=== PATIENT | female | born 1990 | race Caucasian/White ===

== ENCOUNTER → 2023-12-26 09:34 | Outpatient (REF) | payer OTHER, SELFPAY | LOC: WDC 09:34 | PROVIDERS: ATTENDING PHYSICIAN Family Medicine | DX: N63.32 Unspecified lump in axillary tail of the left breast (principal) | CPT/HCPCS: 76642; 77062; 77066 ==

== ENCOUNTER 2024-03-26 08:31 | Emergency (ER) | payer OTHER, SELFPAY ==
[2024-03-26 08:35] VITALS: BP 145/93
--- NOTE | 2024-03-26 10:49 | ED.GENMED ---
History of Present Illness
General
Chief Complaint: Problems
Source: patient
Time Seen by Provider: 03/26/24 10:42
History of Present Illness
History of Present Illness:
33yoF currently 5 weeks presenting for evaluation after a fall last night around 7pm. Patient slipped while walking down the steps and fell backwards. She fell down about 7 steps. She reports some minor pain in her mid back. She started
with cramping today which prompted her to come to the ED. She denies any vaginal bleeding. No urinary symptoms, headache, neck pain, shortness of breath. 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 Her initial OB appointment is scheduled for next
week.
Past History
Past History
ED Past Medical History: Asthma and Other (Sinusitis)
ED Past Surgical History: Tonsilectomy
Social History
Tobacco: Smoker
Alcohol: Occasional
Drug: Former user
Personal:
Living: with family
Family History
Family History: Negative Diabetes, Hypertension, Early CAD, Asthma or Cancer
Phy Exam
General Physical Exam
General Presentation: well appearing and no apparent distress
General age: appears stated age
General Skin: warm and dry
General Habitus: normal
General Mental: alert
ENT Exam
ENT Exam: normocephalic
Pulmonary Exam
Pulmonary Exam: lungs clear, no respiratory distress, no rales, chest non tender, no crackles and no rhonchi
Gastrointestinal Exam
Gastrointestinal Exam: non tender, soft and non distended
F[place]on Coma Scale
Eye Opening: Spontaneous
Verbal Response: Oriented
Motor Response: Obeys Commands
GCS Total Score: 15
Musculoskeletal Exam
Musculoskeletal Exam: other (No C/T/L spine tenderness)
Skin Exam
Skin Exam: normal color, warm/dry and other (No ecchymosis noted)
Course
Orders/Labs/Results
Orders:
Orders
03/26/24 10:48
US W Transvaginal Urgent
Reason For Exam: Cramping, 5 weeks
03/26/24 11:06
Beta HCG Quantitative Urgent
Is this a screen?: No
Complete Blood Count/With Diff Urgent
Comprehensive Metabolic Panel Urgent
Abnormal Lab Results
03/26/24
11:06
RBC 4.07 L 10^6/uL
(4.20-5.40)
Hct 35.2 L %
(37.0-47.0)
Alkaline Phosphatase 25 L U/L
(38-126)
03/26/24 11:06
03/26/24 11:06
Vital Signs
Initial and Last Documented VS:
Initial Vital Signs
Temp Pulse Resp BP Pulse Ox
98.5 F 108 16 145/93 98
03/26/24 08:35 03/26/24 08:35 03/26/24 08:35 03/26/24 08:35 03/26/24 08:35
Last Documented Vital Signs
Temp Pulse Resp BP Pulse Ox
98.5 F 98 15 140/88 98
03/26/24 08:35 03/26/24 13:04 03/26/24 13:04 03/26/24 13:04 03/26/24 08:35
Information
Weeks gestation: Weeks:
Location: Location:
MDM/Problems Addressed
Differential Diagnosis Includes:
33yoF here after a fall down steps last night. Currently 5 weeks . C/o lower back cramping. No vaginal bleeding. VSS. She is well appearing in no distress. Abdomen soft, non-tender. No C/T/L spine tenderness noted. Bilateral breath sounds
equal. Differential diagnosis includes but is not limited to: mechanical fall, sprain, contusion, miscarriage, ectopic
Initial ED plan: Check CBC, CMP, quantitative hCG, and pelvic ultrasound.
*Critical Care Note
Total Time (30-74mins, 75-104mins- exclusive of procedures): Not Applicable
Update Note
Update Note:
Quantitative HCG is 3100 which is increasing per patient. Ultrasound reveals small cystic focus in the fundal endometrium suspicious for early gestational sac measuring 5 weeks 1 day. A pole or yolk sac are not identified. Results discussed
with patient. She has an appointment to see OBGYN scheduled for next week and is supposed to have an ultrasound at that time. ED return precautions discussed. She expressed understanding and was discharged in stable condition.
ED Attending Note
-
Portions of this chart may have been created with voice recognition software.� Occasional wrong word or��sound alike� substitutions may have occurred due to the inherent limitations of voice recognition software.
Discharge Plan
Departure
Patient Disposition: Home (Routine Discharge)
Date of Disposition: 03/26/24
Time of Disposition: 13:19
Patient with high blood pressure during this ER visit?: Yes
Discharge Problem:
Fall down steps, Early stage of , Low back pain
Instructions: Back Pain
Prescriptions:
No Action
vit-iron fum-folic ac 1 TAB tablet
1 tab PO DAILY
escitalopram oxalate 20 MG tablet
20 mg PO DAILY
ondansetron 4 mg Tablet,Disintegrating
4 mg PO TIDPRN PRN (Reason: nausea/vomiting) Qty: 10 0RF
Referrals:
Matheus Roberson DO [Family Provider] -
Activity Restrictions/Additional Instructions:
Apply heat to affected area. You may take Tylenol as needed for pain.
Please follow-up with your OBGYN next week. You will need a repeat HCG and ultrasound.
Return to the ER with any worsening symptoms, severe pain, loss of consciousness, vaginal bleeding.
Interventions
Interventions:
*Risk Screen - Suicide Last Done: 03/26/24 08:35
*Neglect/Abuse Screening Last Done: 03/26/24 08:35
ED- Fall Risk Assessment Last Done: 03/26/24 11:12
*ED COVID-19 Vaccine History Last Done: 03/26/24 11:12
*Nursing Disposition Last Done: 03/26/24 13:26
ED-Female Genitourinary Assessment Last Done: 03/26/24 11:12
Discharge Date and Time
Discharge Date/Time: 03/26/24 13:53
Print Language: NIGERIEN
[2024-03-26 11:12] VITALS: BMI 28.1
[2024-03-26 11:15] LABS: % Basophils 0.5 % (0-2); % Eosinophils 1.9 % (0-6); % Immature Granulocytes 0.2 % (0-0.5); % Lymphocytes 34.3 % (20.5-51.1); % Monocytes 8.3 % (1.7-9.3); % Neutrophils 54.8 % (42.2-75.2); Absolute Eosinophils 0.1 10^3/uL (0-0.7); Absolute Monocytes 0.5 10^3/uL (0.1-0.6); Absolute Neutrophils 3.1 10^3/uL (1.4-6.5); Hematocrit 35.2 % (37.0-47.0); Hemoglobin 12.5 g/dL (12.0-16.0); Mean Corp Hgb Conc. 35.5 g/dL (33.0-37.0); Mean Corpuscular Hgb 30.7 pg (27.0-31.0); Mean Corpuscular Volume 86.5 fL (81.0-99.0); Mean Platelet Volume 8.8 fL (7.4-10.4); Nucleated Red Blood Cells % 0 %; Platelet Count 296 10^3/uL (130-400); Red Blood Cell Count 4.07 10^6/uL (4.20-5.40); Red Cell Dist. Width 12.4 % (11.5-14.5); White Blood Cell Count 5.7 10^3/uL (4.8-10.8)
[2024-03-26 11:35] LABS: ALT (SGPT) 13 U/L (0-35); AST (SGOT) 17 U/L (14-36); Albumin 4.3 g/dl (3.5-5.0); Alkaline Phosphatase 25 U/L (38-126); Blood Urea Nitrogen 11 mg/dl (7-17); Calcium 9.1 mg/dl (8.4-10.2); Carbon Dioxide 25 mmol/L (22-30); Chloride 104 mmol/L (98-107); Estimated Creatinine Clearance 101 ml/min; Glucose 92 mg/dl (70-99); Potassium 3.7 mmol/L (3.5-5.1); Sodium 135 mmol/L (135-145); Total Bilirubin 0.4 mg/dl (0.2-1.3); Total Protein 6.5 g/dl (6.3-8.2); eGFR > 60.00
[2024-03-26 13:04] VITALS: BP 140/88
== END 2024-03-26 13:53 | disposition home or self-care (01) ==
LOC: EMR 08:31
PROVIDERS: Physician Assistant; EMERGENCY PHYSICIAN Emergency Medicine; FAMILY PHYSICIAN Family Medicine
DX: O26.891 Other specified pregnancy related conditions, first trimester (principal); M54.50 Low back pain, unspecified; Z3A.01 Less than 8 weeks gestation of pregnancy; W10.9XXA Fall (on) (from) unspecified stairs and steps, initial encounter; R03.0 Elevated blood-pressure reading, without diagnosis of hypertension
CPT/HCPCS: 99284; 76801; 76817; 80053; 84702; 85025